=== PATIENT | female | born 1940 | race Caucasian/White ===

== ENCOUNTER 2021-03-08 13:00 | Outpatient (RCR) | payer MEDICARE, SELFPAY | END 2021-03-24 12:23 | disposition home or self-care (01) | LOC: HO.WCC 13:00 | PROVIDERS: PCP Internal Medicine; Referring Provider Internal Medicine; Visit Provider Surgery | DX: R73.03 Prediabetes (principal); S81.812A Laceration without foreign body, left lower leg, initial encounter | CPT/HCPCS: 11042; 99212 ==